=== PATIENT | female | born 1980 | race Hispanic/Latino ===

== ENCOUNTER → 2018-09-14 | Day surgery (SDC) | payer OTHER ==
[~2018-09-14] MED LIST: BACITRACIN 50,000 UNIT VIAL ONE; BUPIVACAINE 0.25% 30ML SDV INJ ONE; CEFAZOLIN SOD 1 GM/NS 50ML 50 ML IV ONE; DEXAMETHASONE SOD PHOS INJ 4 MG/ML VIAL ONE; FENTANYL CITRATE/PF 100MCG/2 ML INJ ONE; KETOROLAC TROMETHAMINE 30 MG/ML VIAL ONE; LEXAPRO10 MG PO; LIDOCAINE 1% W/EPINEPHRINE 20 ML VIAL ONE; LIDOCAINE HCL 2% LOCAL INJ 5 ML SDV VIAL INJ ONE; MIDAZOLAM HCL 2 MG/2 ML VIAL ONE; MUPIROCIN 2% OINT 22 GM TUBE ONE; ONDANSETRON HCL INJ 2MG/ML 2ML 2 MG/ML VIAL ONE; PROPOFOL IV EMULSION 10 MG/ML 20 ML VIAL ONE; SEVOFLURANE INHAL SOLN 250 ML PEN BTL ONE
--- OUTSIDE RECORDS SUMMARY | 2018-09-14 06:34 | XMS REPORT ---
Author Author [facility] Address Unknown Phone Unavailable Care Team Providers Care Housecleaner Floor Name Role Phone Unavailable Unavailable Problems This patient has no known problems. Allergies, Adverse Reactions, Alerts This patient has no known allergies or adverse reactions. Medications This patient has no known medications.
--- OUTSIDE RECORDS SUMMARY | 2018-09-14 06:34 | XMS REPORT ---
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
--- OUTSIDE RECORDS SUMMARY | 2018-09-14 06:34 | XMS REPORT ---
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
--- OUTSIDE RECORDS SUMMARY | 2018-09-14 06:34 | XMS REPORT | Continuity of Care Document ---
Author Author [facility] Address Unknown Phone Unavailable Problems Problem Status Onset Date Classification Date Reported Comments Source Dystrophic nail Active Problem 09/04/2018 [facility] Ingrown toenail Active Problem 09/04/2018 [facility] Squamous cell carcinoma Active Problem 09/04/2018 [facility] Medications Medication Details Route Status Patient Instructions Ordering Provider Order Date Source Allergies, Adverse Reactions, Alerts Substance Category Reaction Severity Reaction type Status Date Reported Comments Source Immunizations Immunization Date Given Site Status Last Updated Comments Source Results Order Name Results Value Reference Range Date Interpretation Comments Source Vital Signs Vital Sign Value Date Comments Source Encounters Location Location Details Encounter Type Encounter Number Reason For Visit Attending Provider ADM Date DC Date Status Source Procedures Procedure Code Date Perfomer Comments Source
[2018-09-14 10:35] VITALS: BP 146/96
--- NOTE | 2018-09-14 14:33 | Operative Report ---
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 PROCEDURE: Amputation of right 1st toe at the distal phalanx level and flap closure. ANESTHESIA: General. HISTORY: The patient is a 38-year-old female who had a biopsy proven malignant neoplasm, which was growing from beneath the nail plate. The patient was seen yesterday by the Mohs micrographic surgeon who attempted to remove the malignant neoplasm with clean margins. They were able to clear all the margins except for the deep margin, which was directly onto the cortical surface of the distal phalanx. For this reason, the patient now presents for excision of the distal phalanx in order to obtain clear margins and then flap closure of the toe. The risks, benefits and alternatives of treatment were discussed with the patient and she is prepared to undergo the procedures outlined. DETAILS OF PROCEDURE: Patient was marked preoperatively in the holding area. Note was made of the kelly by the Mohs surgeon indicating the level of invasion of the distal phalanx. The right foot was then exsanguinated and tourniquet was inflated to a pressure of 250 mmHg. A time out was performed. At this point, using a micro-oscillating saw, the distal phalanx was transected proximal to the area where the squamous cell carcinoma was noted to invade the cortical surface. Once the entire width of the bone had been transected using sharp dissection, the distal portion of the distal phalanx was then removed from its underlying soft tissue attachments. It was sent for permanent pathologic examination. At this point, the redundant skin and subcutaneous tissue of the great toe was marked out. It was advanced dorsally and proximally, and then secured to the edge of the proximal portion of the wound using 4-0 Vicryl sutures in an interrupted buried fashion. The redundant skin and subcutaneous tissue was then judiciously excised in order to prevent access. Then the wound was closed with 4-0 nylon in an interrupted horizontal mattress fashion. A Marcaine field block was performed at the base of the toe. The tourniquet was deflated. All the toes including the surgically operated wound pinked up nicely. The incision was noted to be hemostatic. Bactroban ointment, Xeroform gauze and a sterile dressing were applied to the right 1st toe. The patient tolerated the procedure well, and is brought to the recovery room in satisfactory condition and discharged with a postoperative instruction sheet, as well as a followup appointment. Job#: [id number] LIBRADO
== END | disposition home or self-care (01) ==
LOC: OR 06:32
PROVIDERS: ATTEND Plastic Surgery
DX: D04.71 Carcinoma in situ of skin of right lower limb, including hip (principal); Z88.2 Allergy status to sulfonamides; F32.9 Major depressive disorder, single episode, unspecified; F41.9 Anxiety disorder, unspecified; Z87.891 Personal history of nicotine dependence
CPT/HCPCS: 28825; 81025; 88305; 88311; J0690; J1100; J1885; J2001; J2250; J2405; J2704; 88304; 88342